=== PATIENT | female | born 1960 | race African-American/Black ===

== ENCOUNTER 2017-05-09 16:28 | Inpatient (IN) | payer BC ==
[~2017-05-09] VITALS: Ht 162.6 cm; Wt 80.7 kg
[~2017-05-09 16:28] MED LIST: ALBU18HF2 IH; BECL8.7A6 IH
[2017-05-09] MEDS ORDERED: ACETAMINOPHEN 325MG TABLET ONE (17:09)
[2017-05-10] MEDS ORDERED: SODIUM CHLORIDE 0.9% 1,000 ML IV ONE (00:19)
[2017-05-10] MEDS ORDERED: ACETAMINOPHEN 325MG TABLET PO ONE (01:00)
[2017-05-10 01:01] LABS: BASOPHILS % 0.3 % (0.0-2.0); EOSINOPHILS % 0.2 % (0.0-5.0); HEMOGLOBIN. 12.6 g/dL (12.0-16.0); LYMPHOCYTES % 15.8 % (20.0-50.0); MEAN CORPUSCULAR VOLUME 90.1 fL (81.0-99.0); MEAN PLATELET VOLUME 8.5 fl (7.4-10.4); MONOCYTES % 8.3 % (2.0-8.0); NEUTROPHILS % 75.4 % (40.0-76.0); PLATELET 181 x1000/uL (130-400); RED BLOOD CELL COUNT 4.22 mill/uL (4.2-5.4); RED CELL DISTRIBUTION WIDTH 13.9 % (11.6-14.6)
[2017-05-10 01:05] LABS: CLARITY URINE CLOUDY (CLEAR); COLOR URINE ORANGE (YELLOW); KETONES URINE 1+ (NEGATIVE); LEUKOCYTE ESTERASE URINE 2+ (NEGATIVE); NITRITE URINE POSITIVE (NEGATIVE); OCCULT BLOOD URINE 3+ (NEGATIVE); PROTEIN URINE 2+ (NEGATIVE); SPECIFIC GRAVITY URINE 1.035 (1.005-1.030)
[2017-05-10 01:06] LABS: HCG SCREEN NEGATIVE
[2017-05-10] MEDS ORDERED: LEVOFLOXACIN 750MG PREMIX 150 ML IV ONE (01:15)
[2017-05-10 01:16] LABS: CHLORIDE 99 mEq/L (98-107); TROPONIN I < 0.02 ng/mL (0.00-0.04)
[2017-05-10 01:36] LABS: INR 1.3; PARTIAL THROMBOPLASTIN TIME 35.3 sec (23.4-31.0); PROTHROMBIN TIME 13.4 sec (9.4-11.6)
[2017-05-10] MEDS ORDERED: LEVOFLOXACIN 500MG PREMIX 100 ML IV SCH (08:00)
[2017-05-10] MEDS ORDERED: ONDANSETRON HCL 4MG/2ML VIAL IV PRN (08:00)
[2017-05-10] MEDS ORDERED: ACETAMINOPHEN 325MG TABLET PO PRN (08:00)
[2017-05-10] MEDS ORDERED: CLONIDINE 0.1MG TABLET PO PRN (08:00)
[2017-05-10] MEDS ORDERED: HYDROCODONE/ACETAMINOPHEN 5/325MG TABLET PO PRN (08:00)
[2017-05-10] MEDS ORDERED: GUAIFENESIN 200MG/10ML SUGAR FREE UDC PO PRN (08:00)
[2017-05-10] MEDS ORDERED: DOCUSATE SODIUM 100MG CAPSULE PO PRN (08:00)
[2017-05-10] MEDS ORDERED: DEXTROSE 50% WATER 50ML SYRINGE IV PRN (11:15)
[2017-05-10 11:45] VITALS: BP 133/74
[2017-05-10] MEDS: BLOOD SUGAR DIAGNOSTIC STRIP TEST SCH ×3 (11:56→21:42)
[2017-05-10] MEDS ORDERED: VANCOMYCIN 1500MG in DEXTROSE 5% WATER 250ML IV SCH (12:00)
[2017-05-10] MEDS ORDERED: REGADENOSON 0.4 MG/5 ML IV ONE (12:15)
[2017-05-10] MEDS: AMLODIPINE 10MG TABLET PO SCH (12:17)
[2017-05-10] MEDS: ASPIRIN 81MG EC TABLET PO SCH (12:17)
[2017-05-10] MEDS: ENOXAPARIN 40MG/0.4ML SYR SUBCUT SCH (12:18)
[2017-05-10] MEDS: INSULIN LISPRO 100 UNITS/ML SUBCUT SCH ×3 (12:41→21:00)
[2017-05-10] MEDS: IPRATROPIUM/ALBUTEROL 0.5-3(2.5)MG/3ML NEB INH PRN (13:04)
[2017-05-10] MEDS ORDERED: FURO-151 PO (13:36)
[2017-05-10] MEDS ORDERED: DILT240C91 PO (13:36)
[2017-05-10 16:00] VITALS: BP 107/81
[2017-05-10 16:53] LABS: CREATINE KINASE 39 IU/L (26-192); TROPONIN I <0.01 ng/mL ng/mL (0.00-0.04)
[2017-05-10] MEDS: POTASSIUM CHLORIDE 20MEQ TABLET SR PO SCH (17:54)
[2017-05-10] MEDS: FUROSEMIDE 40MG/4ML VIAL IVP SCH (17:55)
[2017-05-10] MEDS: AMIODARONE HCL 200 MG TABLET PO SCH (17:55)
[2017-05-10] MEDS ORDERED: VERAPAMIL HCL 2.5 MG/1 ML 2ML VIAL IV PRN (19:00)
[2017-05-10] MEDS ORDERED: VERAPAMIL HCL 2.5 MG/1 ML 2ML VIAL IV NR (19:00)
[2017-05-10] MEDS ORDERED: POTASSIUM CHLORIDE 20MEQ TABLET SR PO NR (19:00)
[2017-05-10 20:00] VITALS: BP 102/62
[2017-05-10] MEDS: LEVOFLOXACIN 500MG PREMIX 100 ML IV SCH (21:42)
[2017-05-10] MEDS: VANCOMYCIN 1 G PREMIX 200 ML IV SCH (21:42)
[2017-05-10 23:33] LABS: CREATINE KINASE 31 IU/L (26-192); TROPONIN I < 0.02 ng/mL (0.00-0.04)
[2017-05-11] VITALS: BP 105/65
[2017-05-11] MEDS: AMIODARONE HCL 200 MG TABLET PO SCH ×3 (00:09→20:43)
[2017-05-11 04:00] VITALS: BP 97/59
[2017-05-11 06:15] LABS: BASOPHILS % 0.5 % (0.0-2.0); HEMATOCRIT. 36.7 % (36.0-48.0); HEMOGLOBIN. 12.4 g/dL (12.0-16.0); LYMPHOCYTES % 20.8 % (20.0-50.0); MEAN CORPUSCULAR HEMOGLOBIN 30.6 pg (28.0-32.0); MONOCYTES % 7.6 % (2.0-8.0); NEUTROPHILS % 70.1 % (40.0-76.0); PLATELET 200 x1000/uL (130-400); RED BLOOD CELL COUNT 4.04 mill/uL (4.2-5.4); RED CELL DISTRIBUTION WIDTH 13.7 % (11.6-14.6)
[2017-05-11] MEDS: BLOOD SUGAR DIAGNOSTIC STRIP TEST SCH ×4 (06:28→20:56)
[2017-05-11 06:35] LABS: CHLORIDE 101 mEq/L (98-107); HDL CHOLESTEROL 25 mg/dL (40-59); LDL CHOLESTEROL 74 mg/dL (5-100)
[2017-05-11] MEDS ORDERED: REGADENOSON 0.4 MG/5 ML IV ONE (08:22)
[2017-05-11] MEDS: FUROSEMIDE 40MG/4ML VIAL IVP SCH ×2 (09:39→18:18)
[2017-05-11] MEDS: ASPIRIN 81MG EC TABLET PO SCH (09:39)
[2017-05-11] MEDS: AMLODIPINE 10MG TABLET PO SCH (09:39)
[2017-05-11] MEDS: POTASSIUM CHLORIDE 20MEQ TABLET SR PO SCH ×2 (09:40→18:19)
[2017-05-11] MEDS: ENOXAPARIN 40MG/0.4ML SYR SUBCUT SCH (09:40)
[2017-05-11 09:45] VITALS: BP 110/62
[2017-05-11] MEDS: INSULIN LISPRO 100 UNITS/ML SUBCUT SCH ×4 (09:46→20:53)
[2017-05-11] MEDS: VANCOMYCIN 1 G PREMIX 200 ML IV SCH ×2 (11:22→20:43)
[2017-05-11 12:00] VITALS: BP 105/65
[2017-05-11] MEDS ORDERED: SODIUM CHLORIDE 0.9% 10ML VIAL ONE (14:53)
[2017-05-11 16:00] VITALS: BP 121/55
[2017-05-11] MEDS: IPRATROPIUM/ALBUTEROL 0.5-3(2.5)MG/3ML NEB INH PRN (16:40)
[2017-05-11 20:00] VITALS: BP 118/70
[2017-05-11] MEDS: LEVOFLOXACIN 500MG PREMIX 100 ML IV SCH (20:43)
[2017-05-11] MEDS ORDERED: INSULIN GLARGINE UD 100 UNITS/ML SYR SUBCUT SCH (22:00)
[2017-05-12] VITALS: BP 108/70
[2017-05-12 04:00] VITALS: BP 110/65
[2017-05-12] MEDS: BLOOD SUGAR DIAGNOSTIC STRIP TEST SCH ×2 (05:51→12:32)
[2017-05-12] MEDS: INSULIN LISPRO 100 UNITS/ML SUBCUT SCH ×2 (06:25→12:55)
[2017-05-12 08:00] VITALS: BP 130/80
[2017-05-12] MEDS: FUROSEMIDE 40MG/4ML VIAL IVP SCH (08:51)
[2017-05-12] MEDS: VANCOMYCIN 1 G PREMIX 200 ML IV SCH (08:51)
[2017-05-12] MEDS: POTASSIUM CHLORIDE 20MEQ TABLET SR PO SCH (08:51)
[2017-05-12] MEDS: ASPIRIN 81MG EC TABLET PO SCH (08:51)
[2017-05-12] MEDS: AMIODARONE HCL 200 MG TABLET PO SCH (08:52)
[2017-05-12] MEDS: AMLODIPINE 10MG TABLET PO SCH (08:52)
[2017-05-12] MEDS: ENOXAPARIN 40MG/0.4ML SYR SUBCUT SCH (08:52)
[2017-05-12] MEDS ORDERED: CARVEDILOL 3.125 MG TABLET PO NR ×2 (10:45→11:30)
[2017-05-12 11:53] VITALS: BP 115/76
[2017-05-12 12:00] VITALS: BP 115/76
[2017-05-12] MEDS ORDERED: VANCOMYCIN 750 MG PREMIX 150 ML IV SCH (17:00)
[2017-05-12] MEDS ORDERED: CARVEDILOL 3.125 MG TABLET PO SCH (21:00)
[2017-05-12] MEDS ORDERED: FUROSEMIDE 40MG TABLET PO SCH (21:00)
== END 2017-05-12 13:30 | disposition home or self-care (01) | DRG 871 ==
LOC: ER 17:19 → 5WST 05-10 01:49 → SUPCPDRO 05-10 07:51 → ENRESERV 05-10 10:02
PROVIDERS: ADMIT Hospitalist; ATTEND Hospitalist
DX: A41.9 Sepsis, unspecified organism (principal); I50.23 Acute on chronic systolic (congestive) heart failure; I47.2 Ventricular tachycardia; J18.1 Lobar pneumonia, unspecified organism; I48.0 Paroxysmal atrial fibrillation; N39.0 Urinary tract infection, site not specified; E11.65 Type 2 diabetes mellitus with hyperglycemia; I34.0 Nonrheumatic mitral (valve) insufficiency; I25.5 Ischemic cardiomyopathy; I36.1 Nonrheumatic tricuspid (valve) insufficiency; J45.909 Unspecified asthma, uncomplicated; Z80.49 Family history of malignant neoplasm of other genital organs; Z82.49 Family history of ischemic heart disease and other diseases of the circulatory system; Z79.899 Other long term (current) drug therapy; I25.2 Old myocardial infarction; Z88.6 Allergy status to analgesic agent
CPT/HCPCS: 36415; 71045; 76705; 78452; 80053; 80061; 80202; 81001; 82550; 82962; 83036; 83605; 83690; 83735; 83880; 84443; 84484; 84703; 85025; 85610; 85730; 87040; 87077; 87086; 87186; 87804; 93005; 93017; 93306; 93970; 99285; A4216; A9500; C1893; J1650; J1815; J1940; J1956; J2785; J3370; J3490; J7030; J7050; J7060; J7620

== ENCOUNTER 2017-11-21 12:38 | Inpatient (IN) | payer BC ==
[~2017-11-21] VITALS: Ht 162.6 cm; Wt 81.2 kg
[~2017-11-21 12:38] MED LIST changes: +AMI2 PO; +DILT240C92 PO; +FURO40TA5 PO; +METF500T6 PO; +METO-385 PO
[2017-11-21 13:24] LABS: BASOPHILS % 0.5 % (0.0-2.0); EOSINOPHILS % 0.1 % (0.0-5.0); HEMATOCRIT. 39.3 % (36.0-48.0); HEMOGLOBIN. 13.1 g/dL (12.0-16.0); LYMPHOCYTES % 13.7 % (20.0-50.0); MEAN CORPUSCULAR HEMOGLOBIN 30.5 pg (28.0-32.0); MEAN CORPUSCULAR VOLUME 91.3 fL (81.0-99.0); MONOCYTES % 6.5 % (2.0-8.0); NEUTROPHILS % 79.2 % (40.0-76.0); PLATELET 253 x1000/uL (130-400); RED CELL DISTRIBUTION WIDTH 14.1 % (11.6-14.6)
[2017-11-21 13:29] LABS: INR 1.1; PROTHROMBIN TIME 10.7 sec (9.1-11.1)
[2017-11-21 13:30] LABS: CHLORIDE 103 mEq/L (98-107)
[2017-11-21] MEDS ORDERED: FUROSEMIDE 40MG/4ML VIAL IVP ONE ×2 (14:30→20:00)
[2017-11-21] MEDS ORDERED: ENALAPRIL 2.5MG/2ML VIAL 2ML IV ONE ×2 (14:30→20:00)
[2017-11-21] MEDS ORDERED: ONDANSETRON HCL 4MG/2ML VIAL IV PRN (15:45)
[2017-11-21] MEDS ORDERED: ACETAMINOPHEN 325MG TABLET PO PRN (15:45)
[2017-11-21] MEDS ORDERED: LORAZEPAM 2MG/ML CPJ IV PRN (15:45)
[2017-11-21 21:15] VITALS: BP 116/75
[2017-11-21 21:34] VITALS: BP 116/75
[2017-11-21] MEDS ORDERED: ENOXAPARIN 40MG/0.4ML SYR SUBCUT SCH (22:00)
[2017-11-21] MEDS: AMIODARONE HCL 200 MG TABLET PO SCH (22:00)
[2017-11-21] MEDS: FUROSEMIDE 40MG/4ML VIAL IVP SCH (22:00)
[2017-11-21] MEDS ORDERED: HYDROMORPHONE HCL/PF 2MG/ML CPJ IV PRN (22:00)
[2017-11-21 23:32] LABS: CREATINE KINASE 56 IU/L (26-192)
[2017-11-21 23:33] LABS: CREATINE KINASE MB FRACTION < 1.0 ng/mL (0.5-3.6)
[2017-11-22 00:16] VITALS: BP 99/58
[2017-11-22 04:00] VITALS: BP 126/71
[2017-11-22 06:52] LABS: BASOPHILS % 0.9 % (0.0-2.0); HEMATOCRIT. 35.9 % (36.0-48.0); HEMOGLOBIN. 12.1 g/dL (12.0-16.0); LYMPHOCYTES % 29.9 % (20.0-50.0); MEAN CORPUSCULAR HEMOGLOBIN 30.6 pg (28.0-32.0); MEAN CORPUSCULAR VOLUME 90.8 fL (81.0-99.0); MEAN PLATELET VOLUME 9.5 fl (7.4-10.4); MONOCYTES % 8.5 % (2.0-8.0); NEUTROPHILS % 59.7 % (40.0-76.0); PLATELET 226 x1000/uL (130-400); RED BLOOD CELL COUNT 3.95 mill/uL (4.2-5.4)
[2017-11-22] MEDS: FUROSEMIDE 40MG/4ML VIAL IVP SCH ×2 (06:54→16:15)
[2017-11-22 07:00] LABS: CHLORIDE 103 mEq/L (98-107)
[2017-11-22 07:09] LABS: PHOSPHORUS 3.4 mg/dL (2.5-4.9)
[2017-11-22 07:15] LABS: CREATINE KINASE 57 IU/L (26-192)
[2017-11-22 07:17] LABS: CREATINE KINASE MB FRACTION < 1.0 ng/mL (0.5-3.6)
[2017-11-22 07:41] VITALS: BP 124/72
[2017-11-22] MEDS: AMIODARONE HCL 200 MG TABLET PO SCH (08:32)
[2017-11-22] MEDS ORDERED: IPRATROPIUM/ALBUTEROL 0.5-3(2.5)MG/3ML NEB HHN PRN (09:30)
[2017-11-22 12:00] VITALS: BP 125/77
[2017-11-22 14:03] LABS: CLARITY URINE CLEAR (CLEAR); COLOR URINE YELLOW (YELLOW); KETONES URINE NEGATIVE (NEGATIVE); LEUKOCYTE ESTERASE URINE NEGATIVE (NEGATIVE); NITRITE URINE NEGATIVE (NEGATIVE); OCCULT BLOOD URINE NEGATIVE (NEGATIVE); PROTEIN URINE NEGATIVE (NEGATIVE); SPECIFIC GRAVITY URINE 1.005 (1.005-1.030); UROBILINOGEN URINE 0.2 E.U./dL (0.2-1.0)
[2017-11-22 14:23] LABS: *AMPHETAMINES SCREEN URINE NEGATIVE (NEGATIVE); *BARBITURATES SCREEN URINE NEGATIVE (NEGATIVE); *BENZODIAZEPINES SCREEN URINE NEGATIVE (NEGATIVE); *COCAINE SCREEN URINE NEGATIVE (NEGATIVE)
[2017-11-22 14:24] LABS: CANNABINOID URINE SCREEN NEGATIVE (NEGATIVE); METHADONE URINE SCREEN NEGATIVE (NEGATIVE); OPIATES URINE SCREEN NEGATIVE (NEGATIVE); PHENCYCLIDINE URINE SCREEN NEGATIVE (NEGATIVE)
[2017-11-22 16:00] VITALS: BP 126/76
[2017-11-22] MEDS: IPRATROPIUM/ALBUTEROL 0.5-3(2.5)MG/3ML NEB HHN SCH ×2 (16:05→20:56)
[2017-11-22] MEDS: BUDESONIDE 0.5MG/2ML NEB HHN SCH ×2 (16:05→20:56)
[2017-11-22] MEDS: POTASSIUM CHLORIDE 20MEQ TABLET SR PO SCH (16:14)
[2017-11-22] MEDS: ENOXAPARIN 80MG/0.8ML SYR SUBCUT SCH (16:15)
[2017-11-22] MEDS ORDERED: DEXTROSE 50% WATER 50ML SYRINGE IV PRN (16:15)
[2017-11-22] MEDS: BLOOD SUGAR DIAGNOSTIC STRIP TEST SCH ×2 (16:32→20:56)
[2017-11-22] MEDS: INSULIN LISPRO 100 UNITS/ML SUBCUT SCH ×2 (16:42→21:04)
[2017-11-22 20:00] VITALS: BP 107/70
[2017-11-22] MEDS: ENTRESTO 49/51MG PO SCH ×2 (21:00→21:02)
[2017-11-22] MEDS: INSULIN GLARGINE UD 100 UNITS/ML SYR SUBCUT SCH (21:05)
[2017-11-23] VITALS: BP 94/60
[2017-11-23] MEDS: IPRATROPIUM/ALBUTEROL 0.5-3(2.5)MG/3ML NEB HHN SCH ×3 (02:00→14:31)
[2017-11-23] MEDS: BLOOD SUGAR DIAGNOSTIC STRIP TEST SCH ×4 (06:03→20:52)
[2017-11-23] MEDS: FUROSEMIDE 40MG/4ML VIAL IVP SCH ×2 (06:29→16:43)
[2017-11-23] MEDS: INSULIN LISPRO 100 UNITS/ML SUBCUT SCH ×4 (06:33→21:08)
[2017-11-23 06:36] LABS: BASOPHILS % 0.5 % (0.0-2.0); EOSINOPHILS % 1.4 % (0.0-5.0); HEMATOCRIT. 37.6 % (36.0-48.0); HEMOGLOBIN. 12.6 g/dL (12.0-16.0); LYMPHOCYTES % 41.4 % (20.0-50.0); MEAN CORPUSCULAR HEMOGLOBIN 30.2 pg (28.0-32.0); MEAN CORPUSCULAR VOLUME 90.1 fL (81.0-99.0); MEAN PLATELET VOLUME 9.2 fl (7.4-10.4); NEUTROPHILS % 47.7 % (40.0-76.0); PLATELET 236 x1000/uL (130-400); RED BLOOD CELL COUNT 4.18 mill/uL (4.2-5.4); RED CELL DISTRIBUTION WIDTH 13.6 % (11.6-14.6)
[2017-11-23 06:52] LABS: CHLORIDE 102 mEq/L (98-107)
[2017-11-23 08:00] VITALS: BP 129/60
[2017-11-23] MEDS: POTASSIUM CHLORIDE 20MEQ TABLET SR PO SCH (08:10)
[2017-11-23] MEDS: ENTRESTO 49/51MG PO SCH (08:11)
[2017-11-23] MEDS: AMIODARONE HCL 200 MG TABLET PO SCH ×2 (08:11→08:13)
[2017-11-23] MEDS: ENOXAPARIN 80MG/0.8ML SYR SUBCUT SCH ×2 (08:11→21:03)
[2017-11-23] MEDS: BUDESONIDE 0.5MG/2ML NEB HHN SCH ×2 (08:45→21:46)
[2017-11-23] MEDS: INSULIN GLARGINE UD 100 UNITS/ML SYR SUBCUT SCH ×2 (09:23→21:07)
[2017-11-23 12:00] VITALS: BP 111/74
[2017-11-23] MEDS: CARVEDILOL 3.125 MG TABLET PO SCH ×2 (12:30→20:50)
[2017-11-23] MEDS ORDERED: POTASSIUM CHLORIDE 20MEQ TABLET SR PO NR (14:00)
[2017-11-23 16:00] VITALS: BP 102/67
[2017-11-23 20:00] VITALS: BP 103/67
[2017-11-23] MEDS: VALSARTAN PO SCH (20:50)
[2017-11-23] MEDS: SACUBITRIL PO SCH (20:50)
[2017-11-24] VITALS: BP 109/65
[2017-11-24 03:58] VITALS: BP 100/58
[2017-11-24] MEDS: BLOOD SUGAR DIAGNOSTIC STRIP TEST SCH ×2 (06:09→12:05)
[2017-11-24] MEDS: FUROSEMIDE 40MG/4ML VIAL IVP SCH (06:37)
[2017-11-24] MEDS: INSULIN LISPRO 100 UNITS/ML SUBCUT SCH ×2 (06:42→12:05)
[2017-11-24] MEDS: IPRATROPIUM BROMIDE (0.02%) 0.5MG/2.5ML NEB HHN SCH ×2 (07:15→13:46)
[2017-11-24 07:30] LABS: CHLORIDE 103 mEq/L (98-107)
[2017-11-24 07:40] LABS: BASOPHILS % 0.7 % (0.0-2.0); EOSINOPHILS % 1.9 % (0.0-5.0); HEMATOCRIT. 40.7 % (36.0-48.0); HEMOGLOBIN. 13.7 g/dL (12.0-16.0); LYMPHOCYTES % 36.8 % (20.0-50.0); MEAN CORPUSCULAR HEMOGLOBIN 30.5 pg (28.0-32.0); MEAN CORPUSCULAR VOLUME 90.4 fL (81.0-99.0); MEAN PLATELET VOLUME 9.1 fl (7.4-10.4); NEUTROPHILS % 54.6 % (40.0-76.0); PLATELET 294 x1000/uL (130-400); RED CELL DISTRIBUTION WIDTH 13.9 % (11.6-14.6)
[2017-11-24] MEDS: POTASSIUM CHLORIDE 20MEQ TABLET SR PO SCH (08:18)
[2017-11-24] MEDS: ENOXAPARIN 80MG/0.8ML SYR SUBCUT SCH (08:18)
[2017-11-24] MEDS: CARVEDILOL 3.125 MG TABLET PO SCH (08:18)
[2017-11-24] MEDS: SACUBITRIL PO SCH (08:19)
[2017-11-24] MEDS: VALSARTAN PO SCH (08:19)
[2017-11-24 08:23] VITALS: BP 103/68
[2017-11-24] MEDS: INSULIN GLARGINE UD 100 UNITS/ML SYR SUBCUT SCH (09:34)
[2017-11-24 12:00] VITALS: BP 106/71
[2017-11-24] MEDS: BUDESONIDE 0.5MG/2ML NEB HHN SCH (13:46)
[2017-11-24 13:52] VITALS: BP 103/68
== END 2017-11-24 15:20 | disposition home or self-care (01) | DRG 291 ==
LOC: ER 12:38 → 8WST 15:18 → SUPCPDRO 15:35 → ENRESERV 19:41
PROVIDERS: ADMIT Internal Medicine Nephrology; ATTEND Internal Medicine Nephrology
DX: I11.0 Hypertensive heart disease with heart failure (principal); J96.00 Acute respiratory failure, unspecified whether with hypoxia or hypercapnia; I50.23 Acute on chronic systolic (congestive) heart failure; I42.0 Dilated cardiomyopathy; I34.0 Nonrheumatic mitral (valve) insufficiency; E87.6 Hypokalemia; E11.9 Type 2 diabetes mellitus without complications; I25.10 Atherosclerotic heart disease of native coronary artery without angina pectoris; I27.20 Pulmonary hypertension, unspecified; I48.0 Paroxysmal atrial fibrillation; I44.7 Left bundle-branch block, unspecified; J45.909 Unspecified asthma, uncomplicated; Z79.4 Long term (current) use of insulin; Z80.49 Family history of malignant neoplasm of other genital organs; Z87.01 Personal history of pneumonia (recurrent); Z82.49 Family history of ischemic heart disease and other diseases of the circulatory system
CPT/HCPCS: 36415; 71045; 80048; 80053; 80305; 81003; 82550; 82553; 82962; 83735; 83880; 84100; 84484; 85025; 85610; 93005; 94640; 96374; 99285; J1650; J1815; J1940; J7620; J7626

== ENCOUNTER 2017-12-20 00:03 | Inpatient (IN) | payer BC ==
[~2017-12-20] VITALS: Ht 162.6 cm; Wt 78.9 kg
[~2017-12-20 00:03] MED LIST changes: -METO-385 PO
[2017-12-20] MEDS ORDERED: ONDANSETRON HCL 4MG/2ML INJ IV STA (01:17)
[2017-12-20 02:21] LABS: CHLORIDE 105 mEq/L (98-107)
[2017-12-20 02:23] LABS: BASOPHILS % 0.9 % (0.0-2.0); EOSINOPHILS % 0.5 % (0.0-5.0); HEMOGLOBIN. 12.3 g/dL (12.0-16.0); MEAN CORPUSCULAR HEMOGLOBIN 30.1 pg (28.0-32.0); MEAN CORPUSCULAR VOLUME 90.7 fL (81.0-99.0); MEAN PLATELET VOLUME 9.7 fl (7.4-10.4); MONOCYTES % 5.9 % (2.0-8.0); NEUTROPHILS % 63.7 % (40.0-76.0); PLATELET 216 x1000/uL (130-400); RED BLOOD CELL COUNT 4.08 mill/uL (4.2-5.4); RED CELL DISTRIBUTION WIDTH 14.3 % (11.6-14.6)
[2017-12-20 02:27] LABS: INR 1.2
[2017-12-20 03:01] LABS: CLARITY URINE CLEAR (CLEAR); COLOR URINE YELLOW (YELLOW); KETONES URINE TRACE (NEGATIVE); LEUKOCYTE ESTERASE URINE 2+ (NEGATIVE); NITRITE URINE NEGATIVE (NEGATIVE); OCCULT BLOOD URINE NEGATIVE (NEGATIVE); PROTEIN URINE TRACE (NEGATIVE); SPECIFIC GRAVITY URINE 1.023 (1.005-1.030); UROBILINOGEN URINE 0.2 E.U./dL (0.2-1.0)
[2017-12-20] MEDS ORDERED: CEFTRIAXONE 1 G PREMIX 50 ML IV NR (05:30)
[2017-12-20] MEDS ORDERED: MORPHINE SULFATE 4 MG/ML CPJ (NOT FOR IM USE) IV ONE (06:15)
[2017-12-20] MEDS ORDERED: ONDANSETRON HCL 4MG/2ML INJ IV ONE (06:30)
[2017-12-20] MEDS ORDERED: GUAIFENESIN 200MG/10ML SUGAR FREE UDC PO PRN (08:30)
[2017-12-20] MEDS ORDERED: TRAMADOL 50MG TABLET PO PRN (08:30)
[2017-12-20] MEDS ORDERED: NA PHOS,M-B/NA PHOS,DI-BA ENEMA 118ML PR PRN (08:30)
[2017-12-20] MEDS ORDERED: KETOROLAC 15MG/ML VIAL IV PRN (08:30)
[2017-12-20] MEDS ORDERED: ONDANSETRON HCL 4MG/2ML INJ IV PRN (08:30)
[2017-12-20] MEDS ORDERED: IPRATROPIUM/ALBUTEROL 0.5-3(2.5)MG/3ML NEB INH PRN (08:30)
[2017-12-20] MEDS ORDERED: LORAZEPAM 0.5MG TABLET PO PRN (08:30)
[2017-12-20] MEDS ORDERED: ZOLPIDEM TARTRATE 5MG TABLET PO PRN (08:30)
[2017-12-20] MEDS ORDERED: DEXTROSE 50% WATER 50ML SYRINGE IV PRN (08:30)
[2017-12-20] MEDS ORDERED: ACETAMINOPHEN 325MG TABLET PO PRN (08:30)
[2017-12-20] MEDS ORDERED: CLONIDINE 0.1MG TABLET PO PRN (08:30)
[2017-12-20] MEDS ORDERED: MAGNESIUM/ALUMINUM HYDROXIDE/SIMETHICONE 30ML UDC PO PRN (08:30)
[2017-12-20] MEDS ORDERED: DOCUSATE SODIUM 100MG CAPSULE PO PRN (08:30)
[2017-12-20 13:02] VITALS: BP 110/68
[2017-12-20] MEDS ORDERED: NITROGLYCERIN 0.4MG TABLET SL SL PRN (13:15)
[2017-12-20] MEDS ORDERED: ASPI-1158 MT (13:21)
[2017-12-20] MEDS ORDERED: SACU1TAB MT (13:21)
[2017-12-20] MEDS: ENOXAPARIN 40MG/0.4ML SYR SUBCUT SCH (13:53)
[2017-12-20] MEDS: ASPIRIN 325MG EC TABLET PO SCH (13:54)
[2017-12-20] MEDS: FAMOTIDINE 20MG TABLET PO SCH ×2 (13:54→23:08)
[2017-12-20] MEDS: AMIODARONE HCL 200 MG TABLET PO SCH (13:56)
[2017-12-20] MEDS ORDERED: SPIRONOLACTONE 25MG TABLET PO SCH (14:00)
[2017-12-20] MEDS ORDERED: FUROSEMIDE 40MG/4ML VIAL IVP NR (14:00)
[2017-12-20 16:00] VITALS: BP 126/78
[2017-12-20 16:16] LABS: CREATINE KINASE 67 IU/L (26-192)
[2017-12-20 16:17] LABS: CREATINE KINASE MB FRACTION < 1.0 ng/mL (0.5-3.6)
[2017-12-20] MEDS: BLOOD SUGAR DIAGNOSTIC STRIP TEST SCH ×2 (16:57→21:00)
[2017-12-20] MEDS: INSULIN LISPRO 100 UNITS/ML SUBCUT SCH (17:18)
[2017-12-20 20:00] VITALS: BP 110/72
[2017-12-20 23:16] LABS: CREATINE KINASE 51 IU/L (26-192)
[2017-12-20 23:17] LABS: CREATINE KINASE MB FRACTION < 1.0 ng/mL (0.5-3.6)
[2017-12-21] VITALS: BP 115/75
[2017-12-21] MEDS: INSULIN LISPRO 100 UNITS/ML SUBCUT SCH ×4 (00:49→20:13)
[2017-12-21 04:00] VITALS: BP 100/69
[2017-12-21] MEDS ORDERED: CEFTRIAXONE 1 G PREMIX 50 ML IV SCH (06:00)
[2017-12-21 08:00] VITALS: BP 111/66
[2017-12-21] MEDS: FAMOTIDINE 20MG TABLET PO SCH ×2 (08:25→20:14)
[2017-12-21] MEDS: ASPIRIN 325MG EC TABLET PO SCH (08:25)
[2017-12-21] MEDS: SPIRONOLACTONE 25MG TABLET PO SCH (08:26)
[2017-12-21] MEDS: AMIODARONE HCL 200 MG TABLET PO SCH (08:30)
[2017-12-21] MEDS: ENOXAPARIN 40MG/0.4ML SYR SUBCUT SCH (08:30)
[2017-12-21] MEDS: FUROSEMIDE 40MG/4ML VIAL IVP SCH ×2 (10:00→20:14)
[2017-12-21] MEDS: BLOOD SUGAR DIAGNOSTIC STRIP TEST SCH ×3 (11:50→20:13)
[2017-12-21 12:00] VITALS: BP 107/68
[2017-12-21 16:00] VITALS: BP 115/78
[2017-12-21 20:00] VITALS: BP 122/80
[2017-12-22] VITALS: BP 108/64
[2017-12-22 04:00] VITALS: BP 114/76
[2017-12-22 08:00] VITALS: BP 109/67
[2017-12-22] MEDS: AMIODARONE HCL 200 MG TABLET PO SCH (08:21)
[2017-12-22] MEDS: ENOXAPARIN 40MG/0.4ML SYR SUBCUT SCH (08:21)
[2017-12-22] MEDS: SPIRONOLACTONE 25MG TABLET PO SCH (08:21)
[2017-12-22] MEDS: FAMOTIDINE 20MG TABLET PO SCH (08:21)
[2017-12-22] MEDS: ASPIRIN 325MG EC TABLET PO SCH (08:23)
[2017-12-22] MEDS: FUROSEMIDE 40MG/4ML VIAL IVP SCH (08:23)
[2017-12-22 11:18] VITALS: BP 109/68
[2017-12-22] MEDS ORDERED: SACU1TAB MT (11:35)
[2017-12-22] MEDS ORDERED: COR3 MT (11:50)
[2017-12-22 12:00] VITALS: BP 110/67
== END 2017-12-22 13:27 | disposition home or self-care (01) | DRG 689 ==
LOC: ER 00:03 → 8WST 05:27 → EDBEDREQ 05:42 → EDBEDREQTM 05:42 → SUPCPDRO 08:18 → ENRESERV 10:19
PROVIDERS: ADMIT Internal Medicine; ATTEND Internal Medicine
DX: N39.0 Urinary tract infection, site not specified (principal); I50.43 Acute on chronic combined systolic (congestive) and diastolic (congestive) heart failure; I42.0 Dilated cardiomyopathy; I11.0 Hypertensive heart disease with heart failure; E11.65 Type 2 diabetes mellitus with hyperglycemia; I25.10 Atherosclerotic heart disease of native coronary artery without angina pectoris; I34.0 Nonrheumatic mitral (valve) insufficiency; I48.0 Paroxysmal atrial fibrillation; Z79.4 Long term (current) use of insulin; Z88.8 Allergy status to other drugs, medicaments and biological substances; Z79.899 Other long term (current) drug therapy
CPT/HCPCS: 36415; 71045; 74176; 80053; 80061; 81003; 82550; 82553; 82962; 83036; 83690; 83880; 84484; 85025; 85610; 87086; 93970; 96365; 96375; 96376; 99285; J0696; J1650; J1815; J1940; J2405; J7050

== ENCOUNTER 2018-04-08 18:34 | Inpatient (IN) | payer BC ==
[~2018-04-08] VITALS: Ht 162.6 cm; Wt 78.0 kg
[~2018-04-08 18:34] MED LIST changes: -ALBU18HF2 IH; -AMI2 PO; +ASPI-1158 MT; -BECL8.7A6 IH; +COR3 MT; -DILT240C92 PO; -METF500T6 PO; +SACU1TAB MT
[2018-04-09] MEDS ORDERED: FUROSEMIDE 40MG/4ML VIAL IVP ONE (01:15)
[2018-04-09 01:49] LABS: BASOPHILS % 1.2 % (0.0-2.0); EOSINOPHILS % 1.1 % (0.0-5.0); HEMATOCRIT. 45.2 % (36.0-48.0); HEMOGLOBIN. 14.8 g/dL (12.0-16.0); LYMPHOCYTES % 41.3 % (20.0-50.0); MEAN CORPUSCULAR HEMOGLOBIN 30.2 pg (28.0-32.0); MEAN CORPUSCULAR VOLUME 92.4 fL (81.0-99.0); MEAN PLATELET VOLUME 9.5 fl (7.4-10.4); MONOCYTES % 7.6 % (2.0-8.0); NEUTROPHILS % 48.8 % (40.0-76.0); PLATELET 242 x1000/uL (130-400); RED BLOOD CELL COUNT 4.89 mill/uL (4.2-5.4); RED CELL DISTRIBUTION WIDTH 16.5 % (11.6-14.6)
[2018-04-09 01:56] LABS: CHLORIDE 105 mEq/L (98-107)
[2018-04-09 05:42] VITALS: BP 126/83
[2018-04-09 06:00] VITALS: BP 126/81
[2018-04-09] MEDS ORDERED: DOCUSATE SODIUM 100MG CAPSULE PO PRN (08:15)
[2018-04-09] MEDS ORDERED: IPRATROPIUM/ALBUTEROL 0.5-3(2.5)MG/3ML NEB INH PRN (08:15)
[2018-04-09] MEDS ORDERED: DEXTROSE 50% WATER 50ML SYRINGE IV PRN (08:15)
[2018-04-09] MEDS ORDERED: MORPHINE SULFATE 4 MG/ML CPJ (NOT FOR IM USE) IV PRN (08:15)
[2018-04-09] MEDS ORDERED: TRAMADOL 50MG TABLET PO PRN (08:15)
[2018-04-09] MEDS ORDERED: CLONIDINE 0.1MG TABLET PO PRN (08:15)
[2018-04-09] MEDS ORDERED: ONDANSETRON HCL 4MG/2ML INJ IV PRN (08:15)
[2018-04-09] MEDS ORDERED: NA PHOS,M-B/NA PHOS,DI-BA ENEMA 118ML PR PRN (08:15)
[2018-04-09] MEDS ORDERED: ACETAMINOPHEN 325MG TABLET PO PRN (08:15)
[2018-04-09] MEDS ORDERED: NITROGLYCERIN 0.4MG TABLET SL SL PRN (08:15)
[2018-04-09] MEDS ORDERED: GUAIFENESIN 200MG/10ML SUGAR FREE UDC PO PRN (08:15)
[2018-04-09] MEDS ORDERED: ENOXAPARIN 40MG/0.4ML SYR SUBCUT SCH (08:15)
[2018-04-09] MEDS ORDERED: MAGNESIUM/ALUMINUM HYDROXIDE/SIMETHICONE 30ML UDC PO PRN (08:15)
[2018-04-09] MEDS: CARVEDILOL 3.125 MG TABLET PO SCH ×3 (09:00→21:00)
[2018-04-09] MEDS: AMIODARONE HCL 200 MG TABLET PO SCH ×2 (09:00→10:38)
[2018-04-09] MEDS: FUROSEMIDE 100MG/10ML VIAL IVP SCH ×2 (10:38→18:40)
[2018-04-09] MEDS: FAMOTIDINE 20MG TABLET PO SCH ×2 (10:39→21:10)
[2018-04-09] MEDS: GUAIFENESIN 600MG ER TABLET PO SCH ×2 (10:39→21:10)
[2018-04-09] MEDS: ASPIRIN 325MG EC TABLET PO SCH (10:39)
[2018-04-09] MEDS: ENOXAPARIN 30MG/0.3ML SYR SUBCUT SCH ×2 (10:42→21:11)
[2018-04-09] MEDS: SPIRONOLACTONE 25MG TABLET PO SCH ×2 (10:44→18:42)
[2018-04-09] MEDS: BLOOD SUGAR DIAGNOSTIC STRIP TEST SCH ×3 (12:30→21:14)
[2018-04-09] MEDS: INSULIN LISPRO 100 UNITS/ML SUBCUT SCH ×3 (13:51→21:38)
[2018-04-09 15:40] LABS: CREATINE KINASE 56 IU/L (26-192)
[2018-04-09 15:41] LABS: CREATINE KINASE MB FRACTION < 1.0 ng/mL (0.5-3.6)
[2018-04-09 18:41] VITALS: BP 123/66
[2018-04-09 19:50] VITALS: BP 125/80
[2018-04-09 21:00] VITALS: BP 121/83
[2018-04-09] MEDS ORDERED: ZOLPIDEM TARTRATE 5MG TABLET PO PRN (21:00)
[2018-04-10] VITALS: BP 125/84
[2018-04-10 00:26] LABS: CREATINE KINASE 55 IU/L (26-192)
[2018-04-10 00:27] LABS: CREATINE KINASE MB FRACTION < 1.0 ng/mL (0.5-3.6)
[2018-04-10 04:00] VITALS: BP 107/76
[2018-04-10] MEDS: FUROSEMIDE 100MG/10ML VIAL IVP SCH ×2 (05:41→17:52)
[2018-04-10] MEDS: BLOOD SUGAR DIAGNOSTIC STRIP TEST SCH ×4 (05:45→21:45)
[2018-04-10] MEDS: SPIRONOLACTONE 25MG TABLET PO SCH ×2 (05:45→17:52)
[2018-04-10 08:00] VITALS: BP 112/85
[2018-04-10] MEDS: INSULIN LISPRO 100 UNITS/ML SUBCUT SCH ×4 (08:00→21:54)
[2018-04-10] MEDS: ENOXAPARIN 30MG/0.3ML SYR SUBCUT SCH (08:50)
[2018-04-10] MEDS: CARVEDILOL 3.125 MG TABLET PO SCH ×2 (08:51→20:23)
[2018-04-10] MEDS: ASPIRIN 325MG EC TABLET PO SCH (08:51)
[2018-04-10] MEDS: GUAIFENESIN 600MG ER TABLET PO SCH ×2 (08:51→21:45)
[2018-04-10] MEDS: FAMOTIDINE 20MG TABLET PO SCH ×2 (08:51→21:45)
[2018-04-10] MEDS: AMIODARONE HCL 200 MG TABLET PO SCH (08:51)
[2018-04-10 12:00] VITALS: BP 141/82
[2018-04-10 14:18] LABS: CHLORIDE 104 mEq/L (98-107)
[2018-04-10 16:00] VITALS: BP 111/80
[2018-04-10] MEDS ORDERED: POTASSIUM CHLORIDE 20MEQ TABLET SR PO NR (16:45)
[2018-04-10] MEDS ORDERED: MAGNESIUM 4 G PREMIX 100 ML IV PRN (16:45)
[2018-04-10] MEDS ORDERED: MAGNESIUM 2 G PREMIX 50 ML IV PRN (16:45)
[2018-04-10] MEDS ORDERED: KCL 20MEQ/100ML PREMIX 100 ML IV NR (18:00)
[2018-04-10 20:00] VITALS: BP 100/74
[2018-04-11] VITALS: BP 114/78
[2018-04-11 01:54] LABS: *BARBITURATES SCREEN URINE NEGATIVE (NEGATIVE)
[2018-04-11 01:55] LABS: *BENZODIAZEPINES SCREEN URINE NEGATIVE (NEGATIVE); *COCAINE SCREEN URINE NEGATIVE (NEGATIVE); CANNABINOID URINE SCREEN NEGATIVE (NEGATIVE); METHADONE URINE SCREEN NEGATIVE (NEGATIVE); OPIATES URINE SCREEN NEGATIVE (NEGATIVE); PHENCYCLIDINE URINE SCREEN NEGATIVE (NEGATIVE)
[2018-04-11 01:56] LABS: *AMPHETAMINES SCREEN URINE NEGATIVE (NEGATIVE)
[2018-04-11 04:00] VITALS: BP 98/65
[2018-04-11] MEDS: FUROSEMIDE 100MG/10ML VIAL IVP SCH ×2 (05:56→18:00)
[2018-04-11] MEDS: BLOOD SUGAR DIAGNOSTIC STRIP TEST SCH ×4 (05:57→20:17)
[2018-04-11] MEDS: SPIRONOLACTONE 25MG TABLET PO SCH ×2 (05:57→17:59)
[2018-04-11 08:00] VITALS: BP 105/73
[2018-04-11] MEDS: CARVEDILOL 3.125 MG TABLET PO SCH ×2 (09:00→20:18)
[2018-04-11] MEDS: GUAIFENESIN 600MG ER TABLET PO SCH ×2 (09:15→20:17)
[2018-04-11] MEDS: AMIODARONE HCL 200 MG TABLET PO SCH (09:15)
[2018-04-11] MEDS: FAMOTIDINE 20MG TABLET PO SCH ×2 (09:15→20:17)
[2018-04-11] MEDS: ASPIRIN 325MG EC TABLET PO SCH (09:16)
[2018-04-11] MEDS: ENOXAPARIN 40MG/0.4ML SYR SUBCUT SCH (09:16)
[2018-04-11] MEDS: INSULIN LISPRO 100 UNITS/ML SUBCUT SCH ×4 (09:20→20:28)
[2018-04-11] MEDS ORDERED: POTASSIUM CHLORIDE 20MEQ TABLET SR PO NR ×2 (11:15→20:00)
[2018-04-11 11:58] LABS: CLARITY URINE CLEAR (CLEAR); COLOR URINE YELLOW (YELLOW); KETONES URINE NEGATIVE (NEGATIVE); LEUKOCYTE ESTERASE URINE NEGATIVE (NEGATIVE); NITRITE URINE NEGATIVE (NEGATIVE); OCCULT BLOOD URINE NEGATIVE (NEGATIVE); PH URINE 7.5 (4.5-8.0); PROTEIN URINE NEGATIVE (NEGATIVE); SPECIFIC GRAVITY URINE 1.006 (1.005-1.030); UROBILINOGEN URINE 0.2 E.U./dL (0.2-1.0)
[2018-04-11 12:00] VITALS: BP 103/73
[2018-04-11] MEDS: MAGNESIUM OXIDE 400MG TABLET PO SCH ×2 (12:26→17:59)
[2018-04-11 20:00] VITALS: BP 105/72
[2018-04-12] VITALS: BP 102/67
[2018-04-12 04:00] VITALS: BP 113/82
[2018-04-12] MEDS: SPIRONOLACTONE 25MG TABLET PO SCH (06:07)
[2018-04-12] MEDS: BLOOD SUGAR DIAGNOSTIC STRIP TEST SCH ×2 (06:07→12:08)
[2018-04-12] MEDS: FUROSEMIDE 100MG/10ML VIAL IVP SCH (06:07)
[2018-04-12 06:44] LABS: BASOPHILS % 1.1 % (0.0-2.0); EOSINOPHILS % 1.7 % (0.0-5.0); HEMATOCRIT. 42.8 % (36.0-48.0); LYMPHOCYTES % 43.5 % (20.0-50.0); MEAN CORPUSCULAR VOLUME 91.9 fL (81.0-99.0); MEAN PLATELET VOLUME 9.4 fl (7.4-10.4); MONOCYTES % 7.4 % (2.0-8.0); NEUTROPHILS % 46.3 % (40.0-76.0); PLATELET 242 x1000/uL (130-400); RED BLOOD CELL COUNT 4.66 mill/uL (4.2-5.4); RED CELL DISTRIBUTION WIDTH 16.4 % (11.6-14.6)
[2018-04-12 07:11] LABS: CHLORIDE 101 mEq/L (98-107)
[2018-04-12] MEDS: INSULIN LISPRO 100 UNITS/ML SUBCUT SCH ×2 (07:13→12:31)
[2018-04-12 08:00] VITALS: BP 106/71
[2018-04-12] MEDS: CARVEDILOL 3.125 MG TABLET PO SCH (08:46)
[2018-04-12] MEDS: FAMOTIDINE 20MG TABLET PO SCH (08:47)
[2018-04-12] MEDS: ENOXAPARIN 40MG/0.4ML SYR SUBCUT SCH (08:48)
[2018-04-12] MEDS: ASPIRIN 325MG EC TABLET PO SCH (08:48)
[2018-04-12] MEDS: GUAIFENESIN 600MG ER TABLET PO SCH (08:48)
[2018-04-12] MEDS: AMIODARONE HCL 200 MG TABLET PO SCH (08:48)
[2018-04-12] MEDS: MAGNESIUM OXIDE 400MG TABLET PO SCH (08:48)
[2018-04-12 12:00] VITALS: BP 112/80
[2018-04-12 16:00] VITALS: BP 106/77
[2018-04-12 16:06] VITALS: BP 106/77
== END 2018-04-12 17:00 | disposition home or self-care (01) | DRG 293 ==
LOC: ER 18:34 → 5EST 04-09 03:13 → EDBEDREQTM 04-09 03:15 → EDBEDREQ 04-09 03:15 → ENRESERV 04-09 03:28 → 5EST 04-09 06:22 → 7WST 04-09 20:19
PROVIDERS: ADMIT Internal Medicine; ATTEND Internal Medicine
DX: I11.0 Hypertensive heart disease with heart failure (principal); I42.0 Dilated cardiomyopathy; E11.65 Type 2 diabetes mellitus with hyperglycemia; E66.9 Obesity, unspecified; E83.42 Hypomagnesemia; E87.6 Hypokalemia; Z79.4 Long term (current) use of insulin; E87.5 Hyperkalemia; I34.0 Nonrheumatic mitral (valve) insufficiency; I50.43 Acute on chronic combined systolic (congestive) and diastolic (congestive) heart failure; Z79.899 Other long term (current) drug therapy; Z88.5 Allergy status to narcotic agent; Z68.29 Body mass index [BMI] 29.0-29.9, adult; K76.1 Chronic passive congestion of liver
CPT/HCPCS: 36415; 71045; 80048; 80061; 80305; 82550; 82553; 82962; 83036; 83735; 83880; 84484; 93005; 93970; 96372; 96374; 99285; J1650; J1815; J1940; J3475; J3480; J7050

== ENCOUNTER 2018-10-07 13:36 | Inpatient (IN) | payer BC ==
[~2018-10-07] VITALS: Ht 170.2 cm; Wt 76.7 kg
[~2018-10-07 13:36] MED LIST changes: -SACU1TAB MT
[2018-10-07] MEDS ORDERED: LORAZEPAM 2MG/ML CPJ IM ONE (15:15)
[2018-10-07 16:40] LABS: BASOPHILS % 0.1 % (0.0-2.0); HEMATOCRIT. 46.1 % (36.0-48.0); HEMOGLOBIN. 15.1 g/dL (12.0-16.0); LYMPHOCYTES % 7.9 % (20.0-50.0); MEAN CORPUSCULAR HEMOGLOBIN 30.8 pg (28.0-32.0); MEAN CORPUSCULAR VOLUME 94.2 fL (81.0-99.0); MEAN PLATELET VOLUME 10.5 fl (7.4-10.4); MONOCYTES % 2.8 % (2.0-8.0); NEUTROPHILS % 89.2 % (40.0-76.0); PLATELET 126 x1000/uL (130-400); RED CELL DISTRIBUTION WIDTH 23.3 % (11.6-14.6)
[2018-10-07 16:42] LABS: CHLORIDE 94 mEq/L (98-107)
[2018-10-07] MEDS ORDERED: OLANZAPINE 10 MG/VIAL IM ONE (16:45)
[2018-10-07 16:47] LABS: ETHANOL BLOOD < 10 mg/dL
[2018-10-07 16:54] LABS: PLATELET ESTIMATE SLIGHTLY DECREASED
[2018-10-07] MEDS ORDERED: SODIUM CHLORIDE 0.9% 1,000 ML IV ONE (17:53)
[2018-10-07] MEDS ORDERED: INSULIN REGULAR (HUMULIN R) 300UNITS/3ML IV ONE (18:30)
[2018-10-07 18:33] LABS: CLARITY URINE CLOUDY (CLEAR); COLOR URINE DARK YELLOW (YELLOW); KETONES URINE NEGATIVE (NEGATIVE); LEUKOCYTE ESTERASE URINE TRACE (NEGATIVE); NITRITE URINE NEGATIVE (NEGATIVE); OCCULT BLOOD URINE NEGATIVE (NEGATIVE); PROTEIN URINE 1+ (NEGATIVE)
[2018-10-07 18:45] LABS: *AMPHETAMINES SCREEN URINE NEGATIVE (NEGATIVE); *BARBITURATES SCREEN URINE NEGATIVE (NEGATIVE); *BENZODIAZEPINES SCREEN URINE NEGATIVE (NEGATIVE)
[2018-10-07 18:46] LABS: *COCAINE SCREEN URINE NEGATIVE (NEGATIVE); CANNABINOID URINE SCREEN NEGATIVE (NEGATIVE); METHADONE URINE SCREEN NEGATIVE (NEGATIVE); OPIATES URINE SCREEN NEGATIVE (NEGATIVE); PHENCYCLIDINE URINE SCREEN NEGATIVE (NEGATIVE)
[2018-10-07] MEDS ORDERED: SODIUM POLYSTYRENE SULFONATE 15 G/60 ML BOT PO ONE (19:00)
[2018-10-07] MEDS ORDERED: MAGNESIUM/ALUMINUM HYDROXIDE/SIMETHICONE 30ML UDC PO PRN (21:15)
[2018-10-07] MEDS ORDERED: DEXTROSE 50% WATER 50ML SYRINGE IV PRN (21:15)
[2018-10-07] MEDS ORDERED: CLONIDINE 0.1MG TABLET PO PRN (21:15)
[2018-10-07] MEDS ORDERED: IPRATROPIUM/ALBUTEROL 0.5-3(2.5)MG/3ML NEB INH PRN (21:15)
[2018-10-07] MEDS ORDERED: GUAIFENESIN 200MG/10ML SUGAR FREE UDC PO PRN (21:15)
[2018-10-07] MEDS ORDERED: ACETAMINOPHEN 325MG TABLET PO PRN (21:15)
[2018-10-07 21:30] VITALS: BP 97/66
[2018-10-07] MEDS: SODIUM CHLORIDE 0.9% INJ 3ML FLUSH IVF SCH (22:55)
[2018-10-08] VITALS (13 sets, daily range): BP systolic 87–115; BP diastolic 46–72
[2018-10-08] MEDS: BLOOD SUGAR DIAGNOSTIC STRIP TEST SCH ×5 (01:29→21:00)
[2018-10-08] MEDS: INSULIN LISPRO 100 UNITS/ML SUBCUT SCH ×5 (01:36→22:07)
[2018-10-08] MEDS: DIPHENHYDRAMINE 50MG/ML VIAL IV PRN (01:58)
[2018-10-08] MEDS ORDERED: SODIUM POLYSTYRENE SULFONATE 15 G/60 ML BOT PO NR (03:00)
[2018-10-08] MEDS: SODIUM CHLORIDE 0.9% INJ 3ML FLUSH IVF SCH ×4 (06:16→22:03)
[2018-10-08 06:17] LABS: BASOPHILS % 0.1 % (0.0-2.0); EOSINOPHILS % 0.1 % (0.0-5.0); HEMATOCRIT. 50.6 % (36.0-48.0); HEMOGLOBIN. 16.5 g/dL (12.0-16.0); LYMPHOCYTES % 15.8 % (20.0-50.0); MEAN CORPUSCULAR HEMOGLOBIN 31.4 pg (28.0-32.0); MONOCYTES % 3.5 % (2.0-8.0); NEUTROPHILS % 80.5 % (40.0-76.0); PLATELET 96 x1000/uL (130-400); RED BLOOD CELL COUNT 5.27 mill/uL (4.2-5.4)
[2018-10-08] MEDS: CARVEDILOL 3.125 MG TABLET PO SCH ×2 (08:21→21:00)
[2018-10-08 10:28] LABS: CHLORIDE 102 mEq/L (98-107)
[2018-10-08 10:34] LABS: PHOSPHORUS 3.1 mg/dL (2.5-4.9)
[2018-10-08] MEDS ORDERED: LIDOCAINE HCL 1% 20ML VIAL (Pyxis) INJ ONE (12:20)
[2018-10-08] MEDS ORDERED: SODIUM POLYSTYRENE SULFONATE 15 G/60 ML BOT PO SCH (13:00)
[2018-10-08 15:46] LABS: CLARITY URINE CLOUDY (CLEAR); COLOR URINE DARK YELLOW (YELLOW); KETONES URINE NEGATIVE (NEGATIVE); LEUKOCYTE ESTERASE URINE 2+ (NEGATIVE); NITRITE URINE NEGATIVE (NEGATIVE); OCCULT BLOOD URINE 3+ (NEGATIVE); PROTEIN URINE 1+ (NEGATIVE); SPECIFIC GRAVITY URINE 1.019 (1.005-1.030)
[2018-10-08 16:47] LABS: INR 1.5; PROTHROMBIN TIME 15.3 sec (9.6-11.0)
[2018-10-08] MEDS ORDERED: TRAMADOL 50MG TABLET PO PRN (22:00)
[2018-10-08] MEDS: TRAMADOL 50MG TABLET PO PRN (23:12)
[2018-10-09] VITALS (19 sets, daily range): BP systolic 81–105; BP diastolic 22–72
[2018-10-09] MEDS: SODIUM CHLORIDE 0.9% INJ 3ML FLUSH IVF SCH ×3 (05:50→21:53)
[2018-10-09] MEDS: DIPHENHYDRAMINE 50MG/ML VIAL IV PRN (06:10)
[2018-10-09 06:33] LABS: BASOPHILS % 0.1 % (0.0-2.0); EOSINOPHILS % 0.1 % (0.0-5.0); HEMATOCRIT. 41.3 % (36.0-48.0); HEMOGLOBIN. 13.4 g/dL (12.0-16.0); LYMPHOCYTES % 9.5 % (20.0-50.0); MEAN CORPUSCULAR HEMOGLOBIN 30.8 pg (28.0-32.0); MONOCYTES % 4.5 % (2.0-8.0); NEUTROPHILS % 85.8 % (40.0-76.0); PLATELET 79 x1000/uL (130-400); RED BLOOD CELL COUNT 4.34 mill/uL (4.2-5.4); RED CELL DISTRIBUTION WIDTH 24.2 % (11.6-14.6)
[2018-10-09 07:11] LABS: CHLORIDE 102 mEq/L (98-107)
[2018-10-09 07:29] LABS: PHOSPHORUS 2.7 mg/dL (2.5-4.9)
[2018-10-09] MEDS: BLOOD SUGAR DIAGNOSTIC STRIP TEST SCH ×4 (07:43→21:46)
[2018-10-09] MEDS: INSULIN LISPRO 100 UNITS/ML SUBCUT SCH ×4 (07:58→21:00)
[2018-10-09] MEDS ORDERED: ALBUMIN HUMAN 25GM/100ML (25%) IV PRN (08:45)
[2018-10-09] MEDS: CARVEDILOL 3.125 MG TABLET PO SCH ×2 (09:00→21:00)
[2018-10-09] MEDS ORDERED: FUROSEMIDE 40MG/4ML VIAL IVP PRN (11:30)
[2018-10-10] VITALS (10 sets, daily range): BP systolic 86–114; BP diastolic 40–75
[2018-10-10 06:20] LABS: HEMATOCRIT. 35.4 % (36.0-48.0); HEMOGLOBIN. 11.8 g/dL (12.0-16.0); MEAN CORPUSCULAR HEMOGLOBIN 31.4 pg (28.0-32.0); MEAN CORPUSCULAR VOLUME 94.1 fL (81.0-99.0); MEAN PLATELET VOLUME 9.8 fl (7.4-10.4); PLATELET 84 x1000/uL (130-400); RED BLOOD CELL COUNT 3.77 mill/uL (4.2-5.4); RED CELL DISTRIBUTION WIDTH 24.2 % (11.6-14.6)
[2018-10-10 06:48] LABS: CHLORIDE 108 mEq/L (98-107)
[2018-10-10 06:53] LABS: GAMMA GLUTAMYL TRANSPEPTIDASE 371 IU/L (7-32)
[2018-10-10 06:54] LABS: PHOSPHORUS 2.3 mg/dL (2.5-4.9)
[2018-10-10] MEDS: SODIUM CHLORIDE 0.9% INJ 3ML FLUSH IVF SCH ×3 (06:59→22:08)
[2018-10-10 07:34] LABS: FERRITIN 164 ng/mL (10-291)
[2018-10-10] MEDS: BLOOD SUGAR DIAGNOSTIC STRIP TEST SCH ×4 (07:40→21:00)
[2018-10-10 07:45] LABS: HEPATITIS B SURFACE ANTIGEN NEGATIVE
[2018-10-10] MEDS: INSULIN LISPRO 100 UNITS/ML SUBCUT SCH ×4 (07:52→21:00)
[2018-10-10 08:15] LABS: HEPATITIS A AB IGM NEGATIVE (NEGATIVE)
[2018-10-10] MEDS: CARVEDILOL 3.125 MG TABLET PO SCH (09:02)
[2018-10-10] MEDS ORDERED: MIDODRINE HCL 5MG TABLET PO SCH (11:15)
[2018-10-10] MEDS ORDERED: MIDODRINE HCL 5MG TABLET PO PRN (11:15)
[2018-10-10] MEDS: TRAMADOL 50MG TABLET PO PRN (11:46)
[2018-10-10 13:57] LABS: PLATELET ESTIMATE DECREASED
[2018-10-10] MEDS ORDERED: MIDODRINE HCL 5MG TABLET PO NR (22:21)
[2018-10-11] VITALS (12 sets, daily range): BP systolic 74–109; BP diastolic 44–68
[2018-10-11] MEDS: SODIUM CHLORIDE 0.9% INJ 3ML FLUSH IVF SCH ×3 (06:00→21:02)
[2018-10-11 06:29] LABS: CHLORIDE 109 mEq/L (98-107)
[2018-10-11 06:39] LABS: PHOSPHORUS 2.3 mg/dL (2.5-4.9)
[2018-10-11 07:01] LABS: BASOPHILS % 0.3 % (0.0-2.0); EOSINOPHILS % 0.1 % (0.0-5.0); HEMATOCRIT. 38.2 % (36.0-48.0); HEMOGLOBIN. 12.5 g/dL (12.0-16.0); LYMPHOCYTES % 7.9 % (20.0-50.0); MEAN CORPUSCULAR HEMOGLOBIN 31.6 pg (28.0-32.0); MEAN CORPUSCULAR VOLUME 96.6 fL (81.0-99.0); MEAN PLATELET VOLUME 9.9 fl (7.4-10.4); MONOCYTES % 3.4 % (2.0-8.0); NEUTROPHILS % 88.3 % (40.0-76.0); PLATELET 70 x1000/uL (130-400); RED BLOOD CELL COUNT 3.96 mill/uL (4.2-5.4); RED CELL DISTRIBUTION WIDTH 24.1 % (11.6-14.6)
[2018-10-11] MEDS: BLOOD SUGAR DIAGNOSTIC STRIP TEST SCH ×4 (07:30→21:02)
[2018-10-11 09:07] LABS: ALK PHOS TOTAL 375 IU/L (39-117)
[2018-10-11] MEDS: INSULIN LISPRO 100 UNITS/ML SUBCUT SCH ×5 (10:53→23:01)
[2018-10-11 13:15] LABS: ANTI-NUCLEAR ANTIBODIES DIRECT Negative (Negative)
[2018-10-11] MEDS ORDERED: MIDODRINE HCL 5MG TABLET PO PRN (14:15)
[2018-10-11 15:09] LABS: CA 19-9 1 U/mL (0-35)
[2018-10-11] MEDS: MIDODRINE HCL 2.5MG TABLET PO SCH (17:00)
[2018-10-12] VITALS (18 sets, daily range): BP systolic 70–115; BP diastolic 43–71
[2018-10-12] MEDS: SODIUM CHLORIDE 0.9% INJ 3ML FLUSH IVF SCH ×2 (06:00→13:56)
[2018-10-12] MEDS ORDERED: LORAZEPAM 2MG/ML CPJ IV PRN (06:15)
[2018-10-12] MEDS: BLOOD SUGAR DIAGNOSTIC STRIP TEST SCH ×4 (07:30→21:00)
[2018-10-12] MEDS: MIDODRINE HCL 2.5MG TABLET PO SCH ×3 (09:00→17:42)
[2018-10-12] MEDS: HALOPERIDOL LACTATE 5MG/ML VIAL IM PRN ×2 (10:03→17:53)
[2018-10-12 12:43] LABS: BASOPHILS % 0.3 % (0.0-2.0); HEMATOCRIT. 38.5 % (36.0-48.0); HEMOGLOBIN. 12.6 g/dL (12.0-16.0); LYMPHOCYTES % 8.6 % (20.0-50.0); MEAN PLATELET VOLUME 11.3 fl (7.4-10.4); MONOCYTES % 4.3 % (2.0-8.0); NEUTROPHILS % 86.8 % (40.0-76.0); PLATELET 96 x1000/uL (130-400); RED BLOOD CELL COUNT 4.05 mill/uL (4.2-5.4)
[2018-10-12] MEDS ORDERED: RISPERIDONE 1MG TABLET PO SCH (13:00)
[2018-10-12 13:05] LABS: PHOSPHORUS 2.2 mg/dL (2.5-4.9)
[2018-10-12 13:13] LABS: ACTIN (SMOOTH MUSCLE) ANTIBODY 15 Units (0-19)
[2018-10-12] MEDS: INSULIN LISPRO 100 UNITS/ML SUBCUT SCH ×3 (13:37→22:15)
[2018-10-12] MEDS: MIDODRINE HCL 5MG TABLET PO SCH (17:21)
[2018-10-12] MEDS ORDERED: MIDODRINE HCL 5MG TABLET PO SCH (22:00)
[2018-10-13] VITALS (8 sets, daily range): BP systolic 85–110; BP diastolic 56–73
[2018-10-13 06:10] LABS: ALK PHOS BONE FRACTION 40 % (14-68); ALK PHOS INTESTINAL FRACTION 12 % (0-18); ALK PHOS LIVER FRACTION 48 % (18-85)
[2018-10-13 06:14] LABS: CHLORIDE 116 mEq/L (98-107)
[2018-10-13 06:19] LABS: PHOSPHORUS 2.4 mg/dL (2.5-4.9)
[2018-10-13 08:26] LABS: BASOPHILS % 0.4 % (0.0-2.0); HEMATOCRIT. 42.7 % (36.0-48.0); HEMOGLOBIN. 13.5 g/dL (12.0-16.0); LYMPHOCYTES % 10.6 % (20.0-50.0); MEAN CORPUSCULAR HEMOGLOBIN 30.9 pg (28.0-32.0); MEAN CORPUSCULAR VOLUME 97.3 fL (81.0-99.0); MEAN PLATELET VOLUME 11.1 fl (7.4-10.4); MONOCYTES % 5.4 % (2.0-8.0); NEUTROPHILS % 83.6 % (40.0-76.0); PLATELET 97 x1000/uL (130-400); RED BLOOD CELL COUNT 4.39 mill/uL (4.2-5.4); RED CELL DISTRIBUTION WIDTH 25.5 % (11.6-14.6)
[2018-10-13] MEDS: BLOOD SUGAR DIAGNOSTIC STRIP TEST SCH ×4 (08:29→21:11)
[2018-10-13] MEDS: INSULIN LISPRO 100 UNITS/ML SUBCUT SCH ×4 (09:36→21:19)
[2018-10-13] MEDS ORDERED: HALOPERIDOL 0.5MG TABLET PO PRN (10:00)
[2018-10-13] MEDS ORDERED: HALOPERIDOL LACTATE 2 MG/ML PO PRN (12:00)
[2018-10-13] MEDS: DOPAMINE 800MG PREMIX (DOUBLE) 250 ML IV SCH (12:15)
[2018-10-13] MEDS: DOBUTAMINE HCL 500 MG in DEXT 5% WATER 210 ML IV SCH (12:21)
[2018-10-13] MEDS: SODIUM CHLORIDE 0.9% INJ 3ML FLUSH IVF SCH (15:19)
[2018-10-13 20:04] LABS: CLARITY URINE TURBID (CLEAR); COLOR URINE ORANGE (YELLOW); KETONES URINE NEGATIVE (NEGATIVE); LEUKOCYTE ESTERASE URINE 3+ (NEGATIVE); NITRITE URINE POSITIVE (NEGATIVE); OCCULT BLOOD URINE 3+ (NEGATIVE); PH URINE 5.5 (4.5-8.0); PROTEIN URINE 2+ (NEGATIVE); SPECIFIC GRAVITY URINE 1.012 (1.005-1.030)
[2018-10-14] VITALS (12 sets, daily range): BP systolic 95–119; BP diastolic 51–82
[2018-10-14] MEDS: DOBUTAMINE HCL 500 MG in DEXT 5% WATER 210 ML IV SCH ×2 (06:48→23:55)
[2018-10-14 07:48] LABS: BASOPHILS % 0.1 % (0.0-2.0); HEMOGLOBIN. 12.3 g/dL (12.0-16.0); LYMPHOCYTES % 7.8 % (20.0-50.0); MEAN CORPUSCULAR HEMOGLOBIN 31.1 pg (28.0-32.0); MEAN CORPUSCULAR VOLUME 93.5 fL (81.0-99.0); MONOCYTES % 3.2 % (2.0-8.0); NEUTROPHILS % 88.9 % (40.0-76.0); PLATELET 83 x1000/uL (130-400); RED BLOOD CELL COUNT 3.95 mill/uL (4.2-5.4); RED CELL DISTRIBUTION WIDTH 25.3 % (11.6-14.6)
[2018-10-14] MEDS: BLOOD SUGAR DIAGNOSTIC STRIP TEST SCH ×4 (07:57→20:52)
[2018-10-14 07:59] LABS: CHLORIDE 113 mEq/L (98-107)
[2018-10-14 08:09] LABS: PHOSPHORUS 2.3 mg/dL (2.5-4.9)
[2018-10-14] MEDS: INSULIN LISPRO 100 UNITS/ML SUBCUT SCH ×4 (08:13→20:59)
[2018-10-14 09:51] LABS: BG BASE EXCESS -9.3 mmol/L (-2.0-2.0); BG CARBOXYHEMOGLOBIN 0.7 % (0.5-1.5); BG DEOXYHEMOGLOBIN 2.6 % (0.0-5.0); BG FRACTION INSPIRED OXYGEN 21; BG HCO3 ACT 14.2 mmol/L (22.0-26.0); BG METHEMOGLOBIN 0.3 % (0.0-1.5); BG OXYGEN SATURATION 97.4 % (92.0-98.5); BG OXYHEMOGLOBIN 96.4 % (94.0-97.0); BG PCO2 24.9 mmHg (35.0-45.0); BG PH 7.374 (7.350-7.450); BG PO2 99.4 mmHg (75.0-100.0); BG SAMPLE SITE RIGHT RADIAL; BG TOTAL HEMOGLOBIN 12.4 g/dL (12.0-18.0); BG VENT MODE ROOM AIR
[2018-10-14] MEDS: SODIUM CHLORIDE 0.9% INJ 3ML FLUSH IVF SCH ×2 (14:00→21:08)
[2018-10-14] MEDS ORDERED: IPRATROPIUM/ALBUTEROL 0.5-3(2.5)MG/3ML NEB HHN PRN (14:45)
[2018-10-14] MEDS: METRONIDAZOLE 500 MG PREMIX 100 ML IV SCH ×2 (16:00→22:07)
[2018-10-14] MEDS: IPRATROPIUM/ALBUTEROL 0.5-3(2.5)MG/3ML NEB HHN SCH ×3 (16:00→23:49)
[2018-10-14] MEDS ORDERED: CEFEPIME 2,000 MG in DEXT 5% WATER 100 ML IV NR (17:00)
[2018-10-14] MEDS: ACETYLCYSTEINE 100MG/ML 10% VIAL 4ML INH SCH (23:50)
[2018-10-15] VITALS (21 sets, daily range): BP systolic 72–121; BP diastolic 45–95
[2018-10-15] MEDS: IPRATROPIUM/ALBUTEROL 0.5-3(2.5)MG/3ML NEB HHN SCH ×2 (04:14→08:48)
[2018-10-15] MEDS: SODIUM CHLORIDE 0.9% INJ 3ML FLUSH IVF SCH ×3 (06:10→21:49)
[2018-10-15] MEDS: METRONIDAZOLE 500 MG PREMIX 100 ML IV SCH ×3 (06:19→22:16)
[2018-10-15] MEDS: BLOOD SUGAR DIAGNOSTIC STRIP TEST SCH ×4 (08:15→21:49)
[2018-10-15] MEDS: INSULIN LISPRO 100 UNITS/ML SUBCUT SCH ×4 (09:00→21:00)
[2018-10-15 09:09] LABS: HEMATOCRIT. 36.8 % (36.0-48.0); HEMOGLOBIN. 12.4 g/dL (12.0-16.0); MEAN CORPUSCULAR HEMOGLOBIN 31.4 pg (28.0-32.0); MEAN PLATELET VOLUME 10.3 fl (7.4-10.4); PLATELET 79 x1000/uL (130-400); RED BLOOD CELL COUNT 3.96 mill/uL (4.2-5.4); RED CELL DISTRIBUTION WIDTH 25.8 % (11.6-14.6)
[2018-10-15 09:31] LABS: CHLORIDE 110 mEq/L (98-107)
[2018-10-15 09:42] LABS: PHOSPHORUS 1.8 mg/dL (2.5-4.9)
[2018-10-15 10:17] LABS: PLATELET ESTIMATE DECREASED
[2018-10-15] MEDS: MIDODRINE HCL 5MG TABLET PO SCH (11:14)
[2018-10-15] MEDS: CEFEPIME 1,000 MG in DEXTROSE 5% WATER 50 ML IV SCH (13:41)
[2018-10-15] MEDS ORDERED: FUROSEMIDE 40MG/4ML VIAL IVP PRN (14:15)
[2018-10-15] MEDS ORDERED: ALBUMIN HUMAN 25GM/100ML (25%) IV NR (15:45)
[2018-10-15] MEDS ORDERED: ALBUMIN HUMAN 12.5GM/50ML (25%) IV NR (15:55)
[2018-10-15] MEDS: ALBUMIN HUMAN 12.5GM/50ML (25%) IV NR ×2 (16:10→16:11)
[2018-10-15] MEDS: DOBUTAMINE HCL 500 MG in DEXT 5% WATER 210 ML IV SCH (20:02)
[2018-10-15] MEDS: ACETYLCYSTEINE 100MG/ML 10% VIAL 4ML INH SCH (23:57)
[2018-10-15] MEDS: IPRATROPIUM BROMIDE (0.02%) 0.5MG/2.5ML NEB HHN PRN (23:57)
[2018-10-16] VITALS (11 sets, daily range): BP systolic 86–119; BP diastolic 49–72
[2018-10-16] MEDS: ACETYLCYSTEINE 100MG/ML 10% VIAL 4ML INH SCH ×2 (01:37→17:52)
[2018-10-16] MEDS: SODIUM CHLORIDE 0.9% INJ 3ML FLUSH IVF SCH ×3 (06:13→22:38)
[2018-10-16] MEDS: DOBUTAMINE HCL 500 MG in DEXT 5% WATER 210 ML IV SCH ×2 (06:44→21:27)
[2018-10-16] MEDS: BLOOD SUGAR DIAGNOSTIC STRIP TEST SCH ×4 (07:39→21:40)
[2018-10-16] MEDS: INSULIN LISPRO 100 UNITS/ML SUBCUT SCH ×4 (07:39→21:44)
[2018-10-16] MEDS: METRONIDAZOLE 500 MG PREMIX 100 ML IV SCH ×2 (07:41→15:12)
[2018-10-16 08:01] LABS: HEMATOCRIT. 35.5 % (36.0-48.0); HEMOGLOBIN. 11.9 g/dL (12.0-16.0); MEAN CORPUSCULAR HEMOGLOBIN 30.9 pg (28.0-32.0); MEAN CORPUSCULAR VOLUME 92.3 fL (81.0-99.0); MEAN PLATELET VOLUME 10.4 fl (7.4-10.4); PLATELET 75 x1000/uL (130-400); RED BLOOD CELL COUNT 3.85 mill/uL (4.2-5.4); RED CELL DISTRIBUTION WIDTH 25.5 % (11.6-14.6)
[2018-10-16 08:51] LABS: CHLORIDE 108 mEq/L (98-107)
[2018-10-16 08:58] LABS: PHOSPHORUS 1.8 mg/dL (2.5-4.9)
[2018-10-16] MEDS: DOPAMINE 800MG PREMIX (DOUBLE) 250 ML IV SCH (09:20)
[2018-10-16 10:24] LABS: PLATELET ESTIMATE DECREASED
[2018-10-16] MEDS ORDERED: POTASSIUM CHLORIDE 20MEQ TABLET SR PO NR (11:00)
[2018-10-16] MEDS ORDERED: MAGNESIUM 1 G PREMIX 100 ML IV NR (12:30)
[2018-10-16] MEDS ORDERED: POTASSIUM PHOS,M-BASIC-D-BASIC 20 MMOL in DEXT 5% WATER 243.3333 ML IV NR (16:00)
[2018-10-16] MEDS: CEFEPIME 1,000 MG in DEXTROSE 5% WATER 50 ML IV SCH (16:17)
[2018-10-16] MEDS: IPRATROPIUM BROMIDE (0.02%) 0.5MG/2.5ML NEB HHN PRN (17:52)
[2018-10-16] MEDS: MIDODRINE HCL 5MG TABLET PO SCH (21:26)
[2018-10-17] VITALS (13 sets, daily range): BP systolic 80–103; BP diastolic 29–71
[2018-10-17] MEDS: IPRATROPIUM BROMIDE (0.02%) 0.5MG/2.5ML NEB HHN PRN ×2 (01:37→07:52)
[2018-10-17] MEDS: METRONIDAZOLE 500 MG PREMIX 100 ML IV SCH ×4 (01:47→23:11)
[2018-10-17] MEDS: SODIUM CHLORIDE 0.9% INJ 3ML FLUSH IVF SCH ×3 (06:00→22:00)
[2018-10-17] MEDS: ONDANSETRON HCL 4MG/2ML INJ IV PRN (06:21)
[2018-10-17 06:22] LABS: PHOSPHORUS 3.1 mg/dL (2.5-4.9)
[2018-10-17 06:25] LABS: HEMATOCRIT. 35.8 % (36.0-48.0); HEMOGLOBIN. 11.7 g/dL (12.0-16.0); MEAN CORPUSCULAR HEMOGLOBIN 30.6 pg (28.0-32.0); MEAN CORPUSCULAR VOLUME 93.1 fL (81.0-99.0); MEAN PLATELET VOLUME 10.7 fl (7.4-10.4); PLATELET 94 x1000/uL (130-400); RED BLOOD CELL COUNT 3.84 mill/uL (4.2-5.4); RED CELL DISTRIBUTION WIDTH 25.7 % (11.6-14.6)
[2018-10-17] MEDS: DOBUTAMINE HCL 500 MG in DEXT 5% WATER 210 ML IV SCH (06:44)
[2018-10-17] MEDS: BLOOD SUGAR DIAGNOSTIC STRIP TEST SCH ×4 (07:30→21:57)
[2018-10-17] MEDS: ACETYLCYSTEINE 100MG/ML 10% VIAL 4ML INH SCH (07:53)
[2018-10-17] MEDS: INSULIN LISPRO 100 UNITS/ML SUBCUT SCH ×4 (08:00→21:58)
[2018-10-17] MEDS: CEFEPIME 1,000 MG in DEXTROSE 5% WATER 50 ML IV SCH (15:34)
[2018-10-17 23:25] LABS: NUCLEATED RED BLOOD CELLS 1 /100 WBC; PLATELET ESTIMATE DECREASED
[2018-10-18] VITALS (15 sets, daily range): BP systolic 78–137; BP diastolic 40–82
[2018-10-18 06:48] LABS: HEMOGLOBIN. 11.6 g/dL (12.0-16.0); MEAN CORPUSCULAR HEMOGLOBIN 30.8 pg (28.0-32.0); MEAN CORPUSCULAR VOLUME 92.9 fL (81.0-99.0); MEAN PLATELET VOLUME 10.7 fl (7.4-10.4); PLATELET 115 x1000/uL (130-400); RED BLOOD CELL COUNT 3.77 mill/uL (4.2-5.4); RED CELL DISTRIBUTION WIDTH 25.6 % (11.6-14.6)
[2018-10-18] MEDS: BLOOD SUGAR DIAGNOSTIC STRIP TEST SCH ×4 (07:41→21:59)
[2018-10-18] MEDS: METRONIDAZOLE 500 MG PREMIX 100 ML IV SCH ×3 (07:58→23:35)
[2018-10-18] MEDS: DOBUTAMINE HCL 500 MG in DEXT 5% WATER 210 ML IV SCH (07:58)
[2018-10-18] MEDS: SODIUM CHLORIDE 0.9% INJ 3ML FLUSH IVF SCH ×3 (07:58→21:59)
[2018-10-18] MEDS: INSULIN LISPRO 100 UNITS/ML SUBCUT SCH ×4 (07:59→21:48)
[2018-10-18 09:18] LABS: PHOSPHORUS 3.6 mg/dL (2.5-4.9)
[2018-10-18] MEDS: CEFEPIME 1,000 MG in DEXTROSE 5% WATER 50 ML IV SCH (14:54)
[2018-10-18 16:33] LABS: PLATELET ESTIMATE DECREASED
[2018-10-18 17:53] LABS: INR 2.1; PROTHROMBIN TIME 20.8 sec (9.6-11.0)
[2018-10-19] VITALS (12 sets, daily range): BP systolic 81–112; BP diastolic 41–73
[2018-10-19] MEDS: SODIUM CHLORIDE 0.9% INJ 3ML FLUSH IVF SCH ×3 (05:34→21:17)
[2018-10-19] MEDS: DOBUTAMINE HCL 500 MG in DEXT 5% WATER 210 ML IV SCH (06:44)
[2018-10-19 07:16] LABS: HEMATOCRIT. 34.4 % (36.0-48.0); HEMOGLOBIN. 11.3 g/dL (12.0-16.0); MEAN CORPUSCULAR HEMOGLOBIN 30.2 pg (28.0-32.0); MEAN PLATELET VOLUME 10.3 fl (7.4-10.4); PLATELET 128 x1000/uL (130-400); RED BLOOD CELL COUNT 3.74 mill/uL (4.2-5.4); RED CELL DISTRIBUTION WIDTH 25.5 % (11.6-14.6)
[2018-10-19 07:34] LABS: CHLORIDE 109 mEq/L (98-107)
[2018-10-19 07:50] LABS: PHOSPHORUS 2.4 mg/dL (2.5-4.9)
[2018-10-19] MEDS: METRONIDAZOLE 500 MG PREMIX 100 ML IV SCH ×3 (08:00→22:33)
[2018-10-19] MEDS: INSULIN LISPRO 100 UNITS/ML SUBCUT SCH ×4 (08:00→21:30)
[2018-10-19] MEDS: BLOOD SUGAR DIAGNOSTIC STRIP TEST SCH ×4 (08:20→21:17)
[2018-10-19] MEDS ORDERED: PHYTONADIONE 10MG/ML AMP SUBCUT SCH (09:00)
[2018-10-19] MEDS ORDERED: POTASSIUM PHOS,M-BASIC-D-BASIC 30 MMOL in DEXT 5% WATER 500 ML IV SCH (11:00)
[2018-10-19 14:18] LABS: PLATELET ESTIMATE SLIGHTLY DECREASED
[2018-10-19] MEDS: CEFEPIME 1,000 MG in DEXTROSE 5% WATER 50 ML IV SCH (15:41)
[2018-10-19] MEDS: DIPHENHYDRAMINE 50MG/ML VIAL IV PRN ×2 (18:22→22:33)
[2018-10-20] VITALS (94 sets, daily range): BP systolic 44–141; BP diastolic 20–94
[2018-10-20] MEDS: DIPHENHYDRAMINE 50MG/ML VIAL IV PRN (02:31)
[2018-10-20 04:06] LABS: *ALPHA 2 MACROGLOBULINS QN 101 mg/dL (110-276); *GGT1 290 IU/L (0-60); *HEIGHT 67 in (.); *TRIGLYCERIDES 67 mg/dL (0-149); *WEIGHT 171 LBS (.)
[2018-10-20 05:47] LABS: BASOPHILS % 0.4 % (0.0-2.0); EOSINOPHILS % 0.1 % (0.0-5.0); HEMATOCRIT. 38.9 % (36.0-48.0); HEMOGLOBIN. 12.4 g/dL (12.0-16.0); LYMPHOCYTES % 11.1 % (20.0-50.0); MEAN CORPUSCULAR HEMOGLOBIN 30.4 pg (28.0-32.0); MEAN PLATELET VOLUME 10.5 fl (7.4-10.4); MONOCYTES % 3.6 % (2.0-8.0); NEUTROPHILS % 84.8 % (40.0-76.0); PLATELET 108 x1000/uL (130-400); RED BLOOD CELL COUNT 4.09 mill/uL (4.2-5.4); RED CELL DISTRIBUTION WIDTH 26.3 % (11.6-14.6)
[2018-10-20] MEDS: SODIUM CHLORIDE 0.9% INJ 3ML FLUSH IVF SCH ×3 (06:04→21:20)
[2018-10-20 06:43] LABS: BG BASE EXCESS -17.4 mmol/L (-2.0-2.0); BG CARBOXYHEMOGLOBIN 0.3 % (0.5-1.5); BG DEOXYHEMOGLOBIN 1.3 % (0.0-5.0); BG FRACTION INSPIRED OXYGEN 100; BG HCO3 ACT 8.5 mmol/L (22.0-26.0); BG METHEMOGLOBIN 0.3 % (0.0-1.5); BG OXYGEN SATURATION 98.7 % (92.0-98.5); BG OXYHEMOGLOBIN 98.1 % (94.0-97.0); BG PCO2 21.9 mmHg (35.0-45.0); BG PH 7.209 (7.350-7.450); BG PO2 166.7 mmHg (75.0-100.0); BG SAMPLE SITE RIGHT RADIAL; BG TOTAL HEMOGLOBIN 12.9 g/dL (12.0-18.0); BG VENT MODE MASK - NRB
[2018-10-20] MEDS ORDERED: SODIUM BICARBONATE 8.4% 1 MEQ/ML 50ML SYR IV NR (06:56)
[2018-10-20] MEDS: INSULIN LISPRO 100 UNITS/ML SUBCUT SCH ×4 (07:00→21:00)
[2018-10-20] MEDS ORDERED: NOREPINEPHRINE 8 MG in DEXT 5% WATER 242 ML IV PRN (07:00)
[2018-10-20 07:05] LABS: INR 2.6; PROTHROMBIN TIME 25.9 sec (9.6-11.0)
[2018-10-20 07:06] LABS: CHLORIDE 109 mEq/L (98-107)
[2018-10-20] MEDS: METRONIDAZOLE 500 MG PREMIX 100 ML IV SCH ×3 (07:07→22:58)
[2018-10-20 07:11] LABS: PHOSPHORUS 5.7 mg/dL (2.5-4.9)
[2018-10-20] MEDS: SODIUM BICARBONATE 150 MEQ in DEXTROSE 5% WATER 1,000 ML IV SCH (08:58)
[2018-10-20] MEDS ORDERED: PHENYLEPHRINE 40 MG in DEXT 5% WATER 246 ML IV PRN (10:00)
[2018-10-20] MEDS ORDERED: PHENYLEPHRINE 40 MG in DEXT 5% WATER 500 ML IV PRN (10:45)
[2018-10-20] MEDS: BLOOD SUGAR DIAGNOSTIC STRIP TEST SCH ×3 (11:30→21:19)
[2018-10-20] MEDS ORDERED: LIDOCAINE HCL/PF 1% 10 MG/ML 30ML VIAL IJ ONE (11:45)
[2018-10-20] MEDS ORDERED: PHENYLEPHRINE 80 MG in DEXT 5% WATER 492 ML IV PRN (12:00)
[2018-10-20] MEDS ORDERED: LIDOCAINE HCL 1% 20ML VIAL (Pyxis) INJ INFIL SCH (12:00)
[2018-10-20] MEDS ORDERED: NOREPINEPHRINE 16 MG in DEXT 5% WATER 484 ML IV PRN (12:00)
[2018-10-20] MEDS: NOREPINEPHRINE 32 MG in DEXT 5% WATER 468 ML IV PRN (13:00)
[2018-10-20] MEDS: PHENYLEPHRINE 80 MG in DEXT 5% WATER 492 ML IV PRN ×2 (13:33→21:21)
[2018-10-20] MEDS: CEFEPIME 1,000 MG in DEXTROSE 5% WATER 50 ML IV SCH (14:00)
[2018-10-20 21:13] LABS: BG BASE EXCESS -10.5 mmol/L (-2.0-2.0); BG CARBOXYHEMOGLOBIN 0.7 % (0.5-1.5); BG DEOXYHEMOGLOBIN 3.7 % (0.0-5.0); BG FRACTION INSPIRED OXYGEN 32; BG HCO3 ACT 13.4 mmol/L (22.0-26.0); BG METHEMOGLOBIN 0.2 % (0.0-1.5); BG OXYGEN SATURATION 96.3 % (92.0-98.5); BG OXYHEMOGLOBIN 95.4 % (94.0-97.0); BG PCO2 24.9 mmHg (35.0-45.0); BG SAMPLE SITE RIGHT RADIAL; BG TOTAL HEMOGLOBIN 12.2 g/dL (12.0-18.0); BG VENT MODE NASAL CANNULA
[2018-10-20 23:02] LABS: HEMATOCRIT 37.1 % (36.0-48.0); HEMOGLOBIN 11.4 g/dL (12.0-16.0); MEAN CORPUSCULAR HEMOGLOBIN 30.4 pg (28.0-32.0); PLATELET 129 x1000/uL (130-400); RED BLOOD CELL COUNT 3.75 mill/uL (4.2-5.4); RED CELL DISTRIBUTION WIDTH 26.8 % (11.6-14.6)
[2018-10-21] VITALS (82 sets, daily range): BP systolic 34–128; BP diastolic 14–70
[2018-10-21] MEDS: NOREPINEPHRINE 32 MG in DEXT 5% WATER 468 ML IV PRN (04:37)
[2018-10-21] MEDS: PHENYLEPHRINE 80 MG in DEXT 5% WATER 492 ML IV PRN ×3 (04:37→21:08)
[2018-10-21 05:10] LABS: HEMATOCRIT. 36.8 % (36.0-48.0); HEMOGLOBIN. 11.5 g/dL (12.0-16.0); MEAN CORPUSCULAR HEMOGLOBIN 30.6 pg (28.0-32.0); MEAN CORPUSCULAR VOLUME 97.7 fL (81.0-99.0); MEAN PLATELET VOLUME 10.2 fl (7.4-10.4); PLATELET 128 x1000/uL (130-400); RED BLOOD CELL COUNT 3.76 mill/uL (4.2-5.4); RED CELL DISTRIBUTION WIDTH 26.3 % (11.6-14.6)
[2018-10-21 05:18] LABS: CHLORIDE 100 mEq/L (98-107)
[2018-10-21 05:26] LABS: INR 3.5; PHOSPHORUS 4.4 mg/dL (2.5-4.9)
[2018-10-21] MEDS: SODIUM CHLORIDE 0.9% INJ 3ML FLUSH IVF SCH ×3 (06:28→21:09)
[2018-10-21] MEDS: INSULIN LISPRO 100 UNITS/ML SUBCUT SCH ×3 (06:28→17:48)
[2018-10-21] MEDS: BLOOD SUGAR DIAGNOSTIC STRIP TEST SCH ×4 (06:28→21:08)
[2018-10-21] MEDS: METRONIDAZOLE 500 MG PREMIX 100 ML IV SCH ×2 (06:38→14:36)
[2018-10-21 08:10] LABS: BG BASE EXCESS -14.4 mmol/L (-2.0-2.0); BG CARBOXYHEMOGLOBIN 0.5 % (0.5-1.5); BG DEOXYHEMOGLOBIN 1.7 % (0.0-5.0); BG FRACTION INSPIRED OXYGEN 32; BG HCO3 ACT 9.3 mmol/L (22.0-26.0); BG METHEMOGLOBIN 0.3 % (0.0-1.5); BG OXYGEN SATURATION 98.3 % (92.0-98.5); BG OXYHEMOGLOBIN 97.5 % (94.0-97.0); BG PCO2 18.2 mmHg (35.0-45.0); BG PH 7.327 (7.350-7.450); BG PO2 124.1 mmHg (75.0-100.0); BG SAMPLE SITE RIGHT BRACHIAL; BG TOTAL HEMOGLOBIN 11.7 g/dL (12.0-18.0); BG VENT MODE NASAL CANNULA
[2018-10-21 09:14] LABS: NUCLEATED RED BLOOD CELLS 6 /100 WBC
[2018-10-21 09:15] LABS: PLATELET ESTIMATE SLIGHTLY DECREASED
[2018-10-21] MEDS: SODIUM BICARBONATE 150 MEQ in DEXTROSE 5% WATER 1,000 ML IV SCH (09:34)
[2018-10-21] MEDS: VASOPRESSIN 10 UNIT in SODIUM CHLORIDE 0.9% 99.5 ML IV PRN ×4 (10:22→20:12)
[2018-10-21] MEDS: ONDANSETRON HCL 4MG/2ML INJ IV PRN (10:23)
[2018-10-21] MEDS ORDERED: FAMOTIDINE 20MG/2ML VIAL IV SCH (12:00)
[2018-10-21] MEDS: CEFEPIME 1,000 MG in DEXTROSE 5% WATER 50 ML IV SCH (13:26)
[2018-10-21] MEDS ORDERED: MORPHINE SULFATE 2 MG/ML CPJ (NOT FOR IM USE) IV PRN (14:15)
[2018-10-21] MEDS ORDERED: HYDROMORPHONE HCL/PF 2MG/ML CPJ IV PRN (14:30)
[2018-10-24 15:15] LABS: MITOCHONDRIAL M2 AB <20.0 Units (0.0-20.0)
[2018-10-26 04:12] LABS: *ALPHA 2 MACROGLOBULINS QN 113 mg/dL (110-276); *GGT1 249 IU/L (0-60); *HEIGHT 67 in (.); *TRIGLYCERIDES 121 mg/dL (0-149); *WEIGHT 171 LBS (.)
== END 2018-10-21 22:30 | disposition expired | DRG 682 ==
LOC: ER 14:26 → EDBEDREQSVC 17:49 → EDBEDREQ 17:49 → 5EST 17:55 → EDBEDREQ 18:17 → EDBEDREQTM 18:18 → ENRESERV 20:29 → ER 21:16 → MICUSO 10-20 06:58
PROVIDERS: ADMIT Internal Medicine; ATTEND Internal Medicine
PROC: 02HV33Z Insertion of Infusion Device into Superior Vena Cava, Percutaneous Approach (ICD-10-PCS; principal; 2018-10-08)
PROC: B548ZZA Ultrasonography of Superior Vena Cava, Guidance (ICD-10-PCS; 2018-10-08)
PROC: 5A1D70Z Performance of Urinary Filtration, Intermittent, Less than 6 Hours Per Day (ICD-10-PCS; 2018-10-08)
PROC: 5A1D70Z Performance of Urinary Filtration, Intermittent, Less than 6 Hours Per Day (ICD-10-PCS; 2018-10-09)
PROC: 5A1D70Z Performance of Urinary Filtration, Intermittent, Less than 6 Hours Per Day (ICD-10-PCS; 2018-10-11)
PROC: 5A1D70Z Performance of Urinary Filtration, Intermittent, Less than 6 Hours Per Day (ICD-10-PCS; 2018-10-12)
PROC: 5A1D70Z Performance of Urinary Filtration, Intermittent, Less than 6 Hours Per Day (ICD-10-PCS; 2018-10-14)
PROC: 5A1D70Z Performance of Urinary Filtration, Intermittent, Less than 6 Hours Per Day (ICD-10-PCS; 2018-10-15)
PROC: 5A1D70Z Performance of Urinary Filtration, Intermittent, Less than 6 Hours Per Day (ICD-10-PCS; 2018-10-20)
DX: N17.9 Acute kidney failure, unspecified (principal); I50.43 Acute on chronic combined systolic (congestive) and diastolic (congestive) heart failure; G93.41 Metabolic encephalopathy; A41.59 Other Gram-negative sepsis; J96.00 Acute respiratory failure, unspecified whether with hypoxia or hypercapnia; J18.1 Lobar pneumonia, unspecified organism; R65.21 Severe sepsis with septic shock; I13.0 Hypertensive heart and chronic kidney disease with heart failure and stage 1 through stage 4 chronic kidney disease, or unspecified chronic kidney disease; N39.0 Urinary tract infection, site not specified; E87.1 Hypo-osmolality and hyponatremia; E46 Unspecified protein-calorie malnutrition; E87.2 Acidosis; D68.9 Coagulation defect, unspecified; K83.09 Other cholangitis; I42.0 Dilated cardiomyopathy; E11.22 Type 2 diabetes mellitus with diabetic chronic kidney disease; E87.5 Hyperkalemia; N18.9 Chronic kidney disease, unspecified; B95.2 Enterococcus as the cause of diseases classified elsewhere; D64.9 Anemia, unspecified; D69.6 Thrombocytopenia, unspecified; G89.29 Other chronic pain; I08.1 Rheumatic disorders of both mitral and tricuspid valves; E87.8 Other disorders of electrolyte and fluid balance, not elsewhere classified; F25.9 Schizoaffective disorder, unspecified; I27.20 Pulmonary hypertension, unspecified; I48.0 Paroxysmal atrial fibrillation; J45.909 Unspecified asthma, uncomplicated; K76.0 Fatty (change of) liver, not elsewhere classified; R62.7 Adult failure to thrive; E11.65 Type 2 diabetes mellitus with hyperglycemia; K57.90 Diverticulosis of intestine, part unspecified, without perforation or abscess without bleeding; L89.150 Pressure ulcer of sacral region, unstageable; S70.311A Abrasion, right thigh, initial encounter; X58.XXXA Exposure to other specified factors, initial encounter; S80.222A Blister (nonthermal), left knee, initial encounter; K75.4 Autoimmune hepatitis; K76.1 Chronic passive congestion of liver; N25.0 Renal osteodystrophy; I95.9 Hypotension, unspecified; I49.3 Ventricular premature depolarization; B96.1 Klebsiella pneumoniae [K. pneumoniae] as the cause of diseases classified elsewhere; R57.0 Cardiogenic shock; Z66 Do not resuscitate; S70.322A Blister (nonthermal), left thigh, initial encounter; Z88.0 Allergy status to penicillin; Z78.1 Physical restraint status; Z80.3 Family history of malignant neoplasm of breast; Z82.49 Family history of ischemic heart disease and other diseases of the circulatory system; Z83.3 Family history of diabetes mellitus; Z99.3 Dependence on wheelchair; Z88.6 Allergy status to analgesic agent; Z79.899 Other long term (current) drug therapy; Z79.82 Long term (current) use of aspirin; Y92.89 Other specified places as the place of occurrence of the external cause; Y99.8 Other external cause status; Y93.89 Activity, other specified; Z68.26 Body mass index [BMI] 26.0-26.9, adult
CPT/HCPCS: 36415; 36556; 36600; 71045; 71250; 76700; 76705; 76937; 80048; 80061; 80076; 80305; 80307; 80320; 80329; 82010; 82140; 82248; 82375; 82390; 82525; 82570; 82728; 82805; 82962; 82977; 83516; 83605; 83735; 83880; 83935; 84075; 84080; 84100; 84132; 84134; 84145; 84156; 84300; 84443; 84484; 85027; 86038; 86301; 86705; 86709; 86803; 87077; 87186; 87340; 93005; 93306; 93970; 94003; 94640; 97162; 99285; C1752; C1769; C1887; J0692; J1200; J1250; J1265; J1630; J1815; J1940; J2060; J2370; J2405; J3430; J3475; J3490; J7030; J7040; J7050; J7060; J7070; J7608; J7620; P9047; A4315; G0480